=== PATIENT | male | born 1985 | race Two or more races ===

== ENCOUNTER 2021-02-09 22:46 | Emergency (ER) | payer BC, SELFPAY ==
--- NOTE | ~2021-02-09 | CT_ITS ---
EXAMINATION: CT abdomen pelvis w con DATE: 02/10/2021 00:41 INDICATION: Right upper quadrant abdominal pain. Nausea, diarrhea. TECHNIQUE: Computed tomography (CT) of the abdomen and pelvis was performed with 100 cc Omnipaque 350 intravenous contrast. Automated exposure control and iterative reconstruction technique were employe d. Exam dose: 1644.93 mGy-cm total exam DLP. COMPARISON: None. FINDINGS: The lung bases are clear of consolidation. Heart size is normal. No pericardial or pleural effusion. Diffuse hepatic steatosis. No hepatic space-occupying mass lesion. The gallbladder is present. No gal lbladder wall thickening or pericholecystic fluid or fat stranding. No bile duct or pancreatic duct d ilatation. No pancreatic mass lesion or calcification. Normal splenic size. Normal morphology of the adrenal glands is noted but there is mild right adrenal calcification. No renal mass lesion or urinary tract calculus or hydroureteronephrosis. The urinary bladder is relatively evacuated; urinary bladder wall appears mildly prominent thickness throughout. This may be due to the postevacuation state. Prostate gland appears normal. Normal caliber of the abdominal aorta. No intraperitoneal or retroperitoneal or pelvic mass lesion or adenopathy or ascites. Normal appendix. No bowel obstruction, bowel wall thickening, pneumatosis or intraperitoneal free air . Small fat-containing umbilical hernia. Small bilateral fat-containing inguinal hernias. Included skeletal structures are unremarkable; no suspicious osteolytic or osteoblastic lesions. IMPRESSION: Hepatic steatosis Mild right adrenal calcification Normal appendix Reviewed, dictated and finalized at [facility] Reviewed, dictated and finalized at [facility].
[2021-02-09 22:50] VITALS: BP 148/93; PULSE 80; RESP 19; TEMP 36.9; O2SAT 100
--- NOTE | 2021-02-09 23:40 | ED.GENADULT ---
HPI - General Adult General Chief complaint: Abdominal Pain Stated complaint: burning sensation in stomach Time Seen by Provider: 02/09/21 23:20 History of Present Illness HPI narrative: Patient 35-year-old gentleman who presents the emergency department with chief complaint of right upper quadrant abdominal pain and generalized abdominal burning. The patient reports that for the last 2 days he has been having a burning sensation throughout his abdomen and reported that he had pain in the right upper quadrant. Patient reports he had some nausea reports is not improved by anything and reports that it is worsened by eating. Related Data Home Medications Medication Instructions Recorded Confirmed levothyroxine 02/09/21 pantoprazole PO 02/09/21 Allergies Allergy/AdvReac Type Severity Reaction Status Date / Time No Known Allergies Allergy Verified 02/09/21 22:55 Review of Systems Review of Systems: A 10 system review of systems was completed on the patient and is negative except for what is stated in the HPI. Nursing and ancillary documentation was reviewed. Exam Narrative: GENERAL: Well-appearing, well-nourished, and in no acute distress. HEAD: Normocephalic, atraumatic. EYES: PERRLA and EOMI. ENT: Nares clear, no rhinorrhea or epistaxis. Mucous membranes moist. NECK: Supple. CHEST: Clear to auscultation. No respiratory distress. HEART: Regular rate and rhythm. No murmur heard. Normal peripheral pulses. ABDOMEN: Soft, tenderness palpation of the right upper quadrant, nondistended, normal active bowel sounds. EXTREMITIES: Normal range of motion. No edema. SKIN: Warm, dry, no rash. NEURO: No focal deficits. Alert and oriented x3. PSYCH: Normal mood and affect. Course Vital Signs Vital signs: Vital Signs Temperature 36.9 C 02/09/21 22:50 Pulse Rate 80 02/09/21 22:50 Respiratory Rate 19 02/09/21 22:50 Blood Pressure 148/93 H 02/09/21 22:50 Pulse Oximetry 100 02/09/21 22:50 Temperature 36.9 C 02/09/21 22:50 Pulse Rate 75 02/10/21 01:19 Respiratory Rate 16 02/10/21 01:19 Blood Pressure 131/71 02/10/21 01:19 Pulse Oximetry 99 02/10/21 01:19 Medical Decision Making Vital Signs Vital Signs: Vital Signs Temperature 36.9 C 02/09/21 22:50 Pulse Rate 80 02/09/21 22:50 Respiratory Rate 19 02/09/21 22:50 Blood Pressure 148/93 H 02/09/21 22:50 Pulse Oximetry 100 02/09/21 22:50 Temperature 36.9 C 02/09/21 22:50 Pulse Rate 75 02/10/21 01:19 Respiratory Rate 16 02/10/21 01:19 Blood Pressure 131/71 02/10/21 01:19 Pulse Oximetry 99 02/10/21 01:19 Lab Data Result diagrams: 02/09/21 23:42 02/09/21 23:42 Labs: Lab Results 02/09/21 02/09/21 02/09/21 Range/Units 23:42 23:42 23:59 WBC 7.9 (4.5-10.0) K/mm3 RBC 5.06 (4.6-6.20) M/mm3 Hgb 13.0 L (14.0-18.0) g/dL Hct 40.4 L (42.0-52.0) % MCV 79.8 L (80-100) fl MCH 25.7 L (26-34) pg MCHC 32.2 (32-36) g/dl RDW 13.6 (11.5-14.5) % Plt Count 260 (150-375) k/mm3 MPV 10.8 H (7.4-10.4) fl Immature Gran % (Auto) 0.9 H (0-0.5) % Neut % (Auto) 48.8 (45.5-73.1) % Lymph % (Auto) 37.4 (18.3-44.2) % Howard % (Auto) 8.6 H (2.6-8.5) % Eos % (Auto) 3.4 (0-4.4) % Baso % (Auto) 0.9 (0.2-1.2) % Lymph # (Auto) 2.96 (0.9-3.2) K/mm3 Howard # (Auto) 0.7 H (0.1-0.6) K/mm3 Eos # (Auto) 0.3 (0-0.3) K/mm3 Baso # (Auto) 0.1 (0.0-0.1) K/mm3 Abs Immat Gran (auto) 0.07 H (0.00-0.031) K/mm3 Absolute Neuts (auto) 3.9 (1.3-6.7) K/mm3 Absolute Nucleated RBC 0.0 (0.0-0.012) K/mm3 Nucleated RBC % 0.0 (0.0-0.2) % Sodium 139 (137-145) mmol/L Potassium 4.1 (3.4-5.0) mmol/L Chloride 102 (98-107) mmol/L Carbon Dioxide 27 (22-30) mmol/L Anion Gap 10 (8-16) mmol/L BUN 11 (9-20) mg/dL Creatinine 1.00 (0.7-1.3) mg/dL Estim Creat Clear Calc 133 ml/m
[2021-02-09 23:52] LABS: Basophils Absolute Auto 0.1 K/mm3 (0.0-0.1); Basophils Percent Auto 0.9 % (0.2-1.2); Eosinophils Absolute Auto 0.3 K/mm3 (0-0.3); Eosinophils Percent Auto 3.4 % (0-4.4); Hematocrit 40.4 % (42.0-52.0); Immature Granulocyte Absolute 0.07 K/mm3 (0.00-0.031); Immature Granulocyte Percent A 0.9 % (0-0.5); Lymphocytes Absolute Auto 2.96 K/mm3 (0.9-3.2); Lymphocytes Percent Auto 37.4 % (18.3-44.2); Mean Corpuscular HGB Conc 32.2 g/dl (32-36); Mean Corpuscular Hemoglobin 25.7 pg (26-34); Mean Corpuscular Volume 79.8 fl (80-100); Mean Platelet Volume 10.8 fl (7.4-10.4); Monocytes Absolute Auto 0.7 K/mm3 (0.1-0.6); Monocytes Percent Auto 8.6 % (2.6-8.5); Neutrophils Absolute Auto 3.9 K/mm3 (1.3-6.7); Neutrophils Percent Auto 48.8 % (45.5-73.1); Platelet Count Result 260 k/mm3 (150-375); Red Blood Count 5.06 M/mm3 (4.6-6.20); Red Cell Distribution Width 13.6 % (11.5-14.5); White Blood Count 7.9 K/mm3 (4.5-10.0)
[2021-02-09 23:59] LABS: Alanine Aminotransferase 52 U/L (4-50); Albumin Level 4.6 g/dL (3.5-5.1); Alkaline Phosphatase 80 U/L (38-126); Anion Gap 10 mmol/L (8-16); Aspartate Amino Transferase 39 U/L (17-59); Bilirubin,Total 0.7 mg/dL (0.2-1.3); Blood Urea Nitrogen 11 mg/dL (9-20); Calcium 9.5 mg/dL (8.4-10.2); Carbon Dioxide 27 mmol/L (22-30); Chloride 102 mmol/L (98-107); Estimated CRCL calculation 133 ml/min; Estimated Glomerular Filt Rate > 60; Glucose 95 mg/dL (65-110); Lipase 48 U/L (23-300); Potassium 4.1 mmol/L (3.4-5.0); Sodium 139 mmol/L (137-145)
[2021-02-10 00:12] VITALS: BP 142/92; PULSE 72; RESP 16; O2SAT 99
--- NOTE | 2021-02-10 00:14 | PC.NURSE ---
Pt states he has a hx of GERD and this pain feels similar to his acid reflux issues.
--- NOTE | 2021-02-10 00:16 | PC.NURSE ---
this RN tried twice for IV placement and was unsuccessful. other RN notified to try for IV placement.
[2021-02-10] MEDS: FAMOTIDINE 20 MG/2 ML VIAL IV PUSH (00:22)
[2021-02-10] MEDS: PANTOPRAZOLE SODIUM IV 40 MG VIAL IV PUSH (00:22)
[2021-02-10 00:23] LABS: Add Urine Microscopic? NO; Appearance Urine Clear (Clear); Bilirubin Urine Negative (Negative); Blood Urine Negative (Negative); Color Urine Yellow (Yellow); Glucose Urine UA Negative (Negative); Ketones Urine Negative (Negative); Leukocyte Esterase Ur Negative LEU/UL (Negative); Nitrate Urine Negative (Negative); Protein Urine Negative (Negative); Specific Grav Ur 1.016 (1.001-1.035); Urobilinogen Urine Negative mg/dL (<2.0)
[2021-02-10] MEDS: SODIUM CHLORIDE 0.9% IV 1,000 ML 999 ML IV CONT (00:23)
[2021-02-10] MEDS: ONDANSETRON INJ 4 MG/2 ML VIAL IV PUSH (00:23)
--- NOTE | 2021-02-10 00:27 | PC.NURSE ---
Pt to Ct via stretcher at this time.
[2021-02-10 01:19] VITALS: BP 131/71; PULSE 75; RESP 16; O2SAT 99
[2021-02-10] MEDS: BELLADONNA ALK/PHENOB ELIX 10 ML, MAG HYDROX/ALUMINUM HYD/SIMETH 30 ML, LIDOCAINE HCL 2... PO (01:32)
[2021-02-10 02:01] VITALS: BP 122/64; PULSE 89; RESP 16; O2SAT 99
== END 2021-02-10 02:05 | disposition home or self-care (01) ==
PROVIDERS: Emergency Provider Emergency Medicine; PCP Family Medicine
DX: R10.84 Generalized abdominal pain (principal); K21.9 Gastro-esophageal reflux disease without esophagitis
CPT/HCPCS: 36415; 74177; 80053; 81003; 83690; 85025; 96361; 96374; 96375; 99284; A9270; C9113; J2405; J7030; Q9967